=== PATIENT | female | born 1975 | race Caucasian/White ===

== ENCOUNTER 2019-10-07 11:01 | Emergency (ER) | payer OTHER ==
--- NOTE | 2019-10-07 11:52 | ED Physician Documentation ---
PD HPI LOWER EXT INJURY - Stated complaint Stated Complaint: LT FOOT INJ - Chief complaint Chief Complaint: Ext Problem - History obtained from History obtained from: Patient - History of Present Illness PD HPI LOW EXT INJURY LOCATION: Left, Foot Type of injury: Fall Where injury occurred: Home Timing - onset: How many months ago (2) Timing - duration: Months (2) Timing - details: Abrupt onset, Still present Improved by: Rest Worsened by: Moving, Palpating Associated symptoms: Swelling, Discolored. No: Weakness, Numbness Similar symptoms before: Has not had sx before Recently seen: Not recently seen - Additional information Additional information: 44-year-old female injured her ankle about 5 weeks ago and she is subsequently been on a cruise and felt that things were getting better she spent a lot of time her feet on the cruise and she now has pain and swelling to the dorsum of the foot and is concerned about the possibility of fracture. She is coming to the emergency department for evaluation of foot pain that is not improving and has worsened. Review of Systems Constitutional: denies: Fever Eyes: denies: Decreased vision Ears: denies: Ear pain Nose: denies: Congestion Throat: denies: Sore throat Respiratory: denies: Dyspnea, Cough GI: denies: Vomiting PD PAST MEDICAL HISTORY - Past Medical History Past Medical History: No - Past Surgical History Past Surgical History: No - Allergies Allergies/Adverse Reactions: Allergies Allergy/AdvReac Type Severity Reaction Status Date / Time Penicillins Allergy Unknown Verified 10/07/19 11:08 - Social History Does the pt smoke?: No Smoking Status: Never smoker PD ED PE NORMAL - Vitals Vital signs reviewed: Yes (hypertensive ) - General General: Alert and oriented X 3, No acute distress, Well developed/nourished - HEENT HEENT: Atraumatic, PERRL, EOMI - Respiratory Respiratory: No respiratory distress - Derm Derm: Normal color, Warm and dry, No rash - Extremities Extremities: Other (There is swelling and tenderness to the dorsum of the left foot laterally the distal n/v is intact. There is tenderness over the proximal 5th and not over the malleoli) - Neuro Neuro: Alert and oriented X 3, disease and insect control boss 2-12 intact, No motor deficit, No sensory deficit, Normal speech Eye Opening: Spontaneous Motor: Obeys Commands Verbal: Oriented GCS Score: 15 - Psych Psych: Normal mood, Normal affect Results - Vitals Vitals: Vital Signs - 24 hr 10/07/19 10/07/19 11:05 14:10 Temperature 36.2 C L 36.6 C Heart Rate 83 73 Respiratory 16 16 Rate Blood Pressure 161/98 H 149/82 H O2 Saturation 100 99 Oxygen O2 Source Room air - Rads (name of study) foot Radiology: Prelim report reviewed (Impression: 1. No evidence of acute fracture or significant arthritic change.), EMP read indepedently, See rad report PD MEDICAL DECISION MAKING - ED course Complexity details: reviewed results, re-evaluated patient, considered differential, d/w patient ED course: 44-year-old female with a sore swollen foot after injuring it 5 weeks ago and overusing it has no evidence of fracture on plain film. She is placed into a walking boot. She is expected to recover fully. Departure - Departure Disposition: 01 Home, Self Care Clinical Impression: Foot sprain Qualifiers: Encounter type: initial encounter Laterality: left Qualified Code(s): S93.602A - Unspecified sprain of left foot, initial encounter Condition: Stable Instructions: ED Sprain Foot Follow-Up: DARION PEREZ MD [Primary Care Provider] - Discharge Date/Time: 10/07/19 14:08
--- NOTE | 2019-10-07 13:51 | XRAY Report ---
Reason: remote lateral injury persistent pain Procedure Date: 10/07/2019 Accession Number: [id number] / [id number] Procedure: XR - Foot 3 View LT CPT Code: Final Report FULL RESULT: EXAM: LEFT FOOT RADIOGRAPHY EXAM DATE: 10/07/2019 01:40 PM. CLINICAL HISTORY: Remote lateral injury persistent pain. COMPARISON: None. TECHNIQUE: 4 views. FINDINGS: Small plantar calcaneal enthesophyte. No acute fracture. Normal alignment. Accessory navicular. IMPRESSION: 1. No evidence of acute fracture or significant arthritic change. [facility]
[2019-10-07 14:11] VITALS: BP 149/82
== END 2019-10-07 14:08 | disposition home or self-care (01) ==
LOC: ED 11:01
DX: S93.602A Unspecified sprain of left foot, initial encounter (principal); X50.9XXA Other and unspecified overexertion or strenuous movements or postures, initial encounter; Y93.01 Activity, walking, marching and hiking
CPT/HCPCS: 99282; 99283